=== PATIENT | male | born 1965 | race Hispanic/Latino ===

== ENCOUNTER 2017-03-24 16:10 | Emergency (ER) | payer MEDICARE | END 2017-03-24 17:52 | disposition home or self-care (01) | LOC: ERS 16:10 | DX: L73.1 Pseudofolliculitis barbae (principal); F32.9 Major depressive disorder, single episode, unspecified; F17.210 Nicotine dependence, cigarettes, uncomplicated; Z79.899 Other long term (current) drug therapy | CPT/HCPCS: 99283 ==

== ENCOUNTER 2017-06-23 13:15 | Emergency (ER) | payer MEDICARE ==
[2017-06-23] MEDS ORDERED: Ketorolac Tromethamine 30 MG/ML VIAL ONE (15:06)
[2017-06-23] MEDS ORDERED: Fentanyl 100 MCG/2 ML VIAL ONE (15:22)
--- NOTE | 2017-06-23 15:40 | RAD ---
RIGHT KNEE FOUR VIEWS: HISTORY: Right hip pain following injury. FINDINGS/IMPRESSION: Degenerative changes are present. No fracture or dislocation is identified. There is fullness in th e suprapatellar pouch suspicious for joint effusion. POS: GARCIA
[2017-06-23] MEDS ORDERED: Ondansetron HCl/PF 4 MG/2 ML Vial ONE (16:24)
[2017-06-23] MEDS ORDERED: Morphine 4 MG/ML VIAL ONE (16:24)
== END 2017-06-23 15:50 | disposition home or self-care (01) ==
LOC: ERS 13:15
DX: M25.461 Effusion, right knee (principal); F17.210 Nicotine dependence, cigarettes, uncomplicated; F32.9 Major depressive disorder, single episode, unspecified
CPT/HCPCS: 96372; J1885; J2270; J2405; J3010

== ENCOUNTER 2018-06-13 19:37 | Emergency (ER) | payer MEDICARE ==
[2018-06-13] MEDS ORDERED: Acetaminophen 500 MG TAB ONE (20:02)
--- NOTE | 2018-06-13 20:37 | CT ---
CT CERVICAL SPINE 06/13/18 PROVIDED CLINICAL HISTORY: Trauma. FINDINGS: No evidence for fracture or traumatic subluxation. No prevertebral soft tissue swelling apparent. The visualized lung apices appear clear. Carotid calcifications are seen. IMPRESSION: No evidence for fracture or traumatic subluxation. POS: EDILIA
--- NOTE | 2018-06-13 21:47 | CT ---
CT BRAIN: 06/13/18 PROVIDED CLINICAL HISTORY: Trauma. FINDINGS: No comparisons. The ventricular system is normal in size and morphology. There is no evidence for int racranial hemorrhage, or mass effect. There is mucosal thickening involving the left maxillary sinus and sphenoid sinus as well as predominantly opacified ethmoid air cells. Partially opacified frontal sinus. No evidence for an acute abnormality involving the extracranial soft tissues and osseous struc tures. IMPRESSION: 1. No evidence for intracranial hemorrhage or mass effect. 2. Paranasal sinus mucosal disease as above. POS: GARCIA
== END 2018-06-13 20:34 ==
LOC: ERS 19:37
DX: S16.1XXA Strain of muscle, fascia and tendon at neck level, initial encounter (principal); F10.129 Alcohol abuse with intoxication, unspecified; V89.2XXA Person injured in unspecified motor-vehicle accident, traffic, initial encounter
CPT/HCPCS: 70450; 72125

== ENCOUNTER 2019-10-30 15:13 | Emergency (ER) | payer MEDICARE, OTHER ==
[2019-10-31 11:42] LABS: SARS-CoV-2 MS2 Positive; SARS-CoV-2 N Gene Negative; SARS-CoV-2 S Gene Negative; SARS-CoV-2 orf1ab Negative
== END 2019-10-30 15:38 | disposition home or self-care (01) ==
LOC: ERS 15:13
DX: R68.83 Chills (without fever) (principal); R11.10 Vomiting, unspecified; B34.9 Viral infection, unspecified; Z20.828 Contact with and (suspected) exposure to other viral communicable diseases; Z79.899 Other long term (current) drug therapy
CPT/HCPCS: 99284; U0003; 87635

== ENCOUNTER 2020-01-28 13:43 | Emergency (ER) | payer MEDICARE, OTHER ==
[2020-01-28] MEDS ORDERED: Bacitracin 1 PK ONE (15:11)
== END 2020-01-28 15:18 | disposition home or self-care (01) ==
LOC: ERS 13:43
DX: S61.212A Laceration without foreign body of right middle finger without damage to nail, initial encounter (principal); F41.9 Anxiety disorder, unspecified; F32.9 Major depressive disorder, single episode, unspecified; F17.210 Nicotine dependence, cigarettes, uncomplicated; Z79.899 Other long term (current) drug therapy; W26.9XXA Contact with unspecified sharp object(s), initial encounter
CPT/HCPCS: 99282

== ENCOUNTER 2024-08-17 16:19 | Emergency (ER) | payer MEDICARE ==
[2024-08-17] MEDS ORDERED: Dexamethasone 10 MG/ML VIAL ONE (18:26)
[2024-08-17] MEDS ORDERED: Ketorolac Tromethamine 30 MG (1 mL) VIAL ONE (18:26)
[2024-08-17] MEDS ORDERED: HYDROcodone/Acetaminophen 5/325 mg Tablet ONE (18:27)
== END 2024-08-17 19:00 | disposition home or self-care (01) ==
LOC: ERS 16:19
DX: M25.571 Pain in right ankle and joints of right foot (principal); F17.210 Nicotine dependence, cigarettes, uncomplicated
CPT/HCPCS: 73610; J1100; J1885; 96372; 99283